=== PATIENT | female | born 1940 | race Caucasian/White ===

== ENCOUNTER 2017-02-11 09:06 | Day surgery (SDC) | payer MEDICARE, BC ==
[~2017-02-11 09:06] MED LIST: ADVIL200 M2 PO; ASCORBIC ACID500 M2 PO; ASPIR 8181 M1 PO; B6 PO; BISCOLAX10 MG PR; COLD EEZE PO; CRANBERRY425 MG PO; CRANBERRY500 M2 PO; EFFEXOR XR75 M1 PO; FLONASE SENSIM9.9 ML; FLUDROCORTISON0.1 M1 PO; GLUCOPHAGE500 M3 PO; HIPREX1 GM PO; LIVALO4 M1 PO; LOVASTATIN20 M2 PO; MIDODRINE HCL10 M1 PO; MIDODRINE HCL5 M1 PO; MILK OF MAGNESIA PO; OMEPRAZOLE20 M3 PO; PLAVIX75 M1 PO; POTASSIUM CHLO10 ME1 PO; PYRIDOSTIGMINE60 M2 PO; REFRESH LIQUIGEL OP; VENLAFAXINE; VENLAFAXINE HCL75 M3 PO; VITAMIN B-121000 MC1 SL; VITAMIN B-6100 M1 PO; [UNRECOGNIZED DRUG - CODE] SL
[2017-02-11 09:42] LABS: BASO % 0.9 % (0-2); BASO ABSOLUTE COUNT 0.1 tho/cmm (0.0-0.2); EOS % 1.9 % (0-7); EOSINOPHIL ABSOLUTE COUNT 0.1 tho/cmm (0.0-0.7); HCT-HEMATOCRIT 37.7 % (34.0-49.0); HGB-HEMOGLOBIN 12.9 gm/dl (12.0-15.5); IMMATURE GRANULOCYTES ABSOLUTE 0.01 tho/cmm (0-0.03); IMMATURE GRANULOCYTES PERCENT 0.1 % (0-0.3); LYMPH % 40.5 % (20-45); LYMPH ABSOLUTE COUNT 2.7 tho/cmm (0.8-4.5); MCH (MEAN CORPUSCULAR HGB) 30.4 pg (28.0-32.0); MCHC MEAN CORPUSCULAR HGB CONC 34.2 % (32.0-36.0); MCV (MEAN CELL VOLUME) 88.7 fl (82.0-96.0); MEAN PLATELET VOLUME 10.5 cmc (9.4-12.4); MONO % 7.3 % (0-12); MONOCYTE ABSOLUTE COUNT 0.5 tho/cmm (0.0-1.2); NEUTROPHIL ABSOLUTE COUNT 3.3 tho/cmm (1.6-8.0); NEUTROPHIL-AUTOMATED 3.3 tho/cmm (1.6-8.0); NEUTROPHILS % 49.3 % (40-80); PLATELET COUNT 283 tho/cmm (150-450); RED BLOOD COUNT 4.25 mil/cmm (4.00-5.20); RED CELL DISTRIBUTION WIDTH 13.9 % (12.4-16.4); WHITE BLOOD COUNT 6.7 tho/cmm (4.0-10.0)
[2017-02-11 09:51] LABS: INR 0.9 INR (0.9-1.1); PROTHROMBIN TIME 10.6 SECONDS (9.0-13.6)
== END 2017-02-11 15:15 ==
LOC: CTSCAN 09:06 → SHSC 09:07
PROVIDERS: Radiology Diagnostic Radiology
PROC: 0BBK3ZX Excision of Right Lung, Percutaneous Approach, Diagnostic (ICD-10-PCS; principal; 2017-02-11)
DX: C34.11 Malignant neoplasm of upper lobe, right bronchus or lung (principal); E11.9 Type 2 diabetes mellitus without complications; F32.9 Major depressive disorder, single episode, unspecified; Z90.49 Acquired absence of other specified parts of digestive tract; Z90.710 Acquired absence of both cervix and uterus; Z98.890 Other specified postprocedural states
CPT/HCPCS: J3010; J7030